=== PATIENT | male | born 1965 | race Asian ===

== ENCOUNTER 2018-02-06 16:48 | Emergency (ER) | payer SELFPAY ==
[~2018-02-06] VITALS: Ht 177.8 cm; Wt 90.7 kg
--- NOTE | 2018-02-06 17:00 | NUR ---
[id number], came to er c/o left hand 4th digit pain and swelling x 1 week from a cutting tool. CMS WNL. RR is even and unlabored with nad noted. Awaiting MD for eval.
[2018-02-06] MEDS ORDERED: TDAP [DIPH/PERTUSSIS/TET] 0.5 ML VIAL IM ONE ×2 (17:11→17:30)
[2018-02-06] MEDS ORDERED: IBUPROFEN 600 MG TABLET PO ONE ×2 (17:11→17:30)
--- NOTE | 2018-02-06 17:19 | NUR ---
xray in progress at [facility].
--- NOTE | 2018-02-06 17:50 | NUR ---
Patient discharged to home in stable condition. Written and verbal after care instructions given. Patient verbalizes understanding of instruction.
[2018-02-06 18:01] VITALS: BP 140/95
== END 2018-02-06 18:02 | disposition home or self-care (01) ==
LOC: ER 16:50
DX: S61.215A Laceration without foreign body of left ring finger without damage to nail, initial encounter (principal); E11.9 Type 2 diabetes mellitus without complications; W26.8XXA Contact with other sharp object(s), not elsewhere classified, initial encounter; Y93.89 Activity, other specified; Y92.89 Other specified places as the place of occurrence of the external cause; Y99.8 Other external cause status
CPT/HCPCS: 29130; 73140; 90471; 90715; 99284; A4606; Z7610